=== PATIENT | male | born 1940 | race Caucasian/White ===

== ENCOUNTER → 2017-01-07 | Outpatient (CLI) | payer OTHER ==
[2016-10-15 10:27] VITALS: BP 117/68
[~2017-01-07] MED LIST: ASPI81TA2 PO; AZEL137S3 NS; BORAGE PO; CALC-38 PO; CLOP75TA PO; COQ10 PO; FISH PO; FLAX PO; FLUT12AE IH; Focus Factor PO; KRIL500C PO; LACT1CAP8 PO; LEVO50TA5 PO; MECL-51 PO; OMEP40CA5 PO; Occuvite PO; POTASSIUM GLUTAMATE PO; SIMV80TA3 PO; [UNRECOGNIZED DRUG - OTHER] PO
--- NOTE | 2017-01-07 17:47 | RAD ---
APPROVED REPORT Patient Location: OUT-PATIENT Laterality:Bilateral Indications AORTIC STENOSIS Doppler Spectral Velocity Analysis Right Left mCCA 58/ cm/smCCA 58/ cm/s ECA 63/ cm/sECA 119/ cm/s pICA 62/16 cm/spICA 59/20 cm/s Danelle 55/16 cm/smICA 87/27 cm/s dICA 69/19 cm/sdICA 103/29 cm/s ICA/CCA 1.19ICA/CCA 1.80 Findings Bilateral carotid arterial duplex reveals the following: On the right there is mild to moderate intimal hyperplasia and plaque at the carotid bifurcation. Spe ctral waveforms and color Doppler study does not reveal any evidence of high-grade stenosis with norm al velocity profiles. On the left there is again mild to moderate intimal hyperplasia and plaque at the carotid bifurcation . Spectral waveforms and color Doppler study does not reveal any evidence of high-grade stenosis with near normal velocity profiles. Overall, no significant disease is identified in the internal and external carotid vessels. The bilat eral vertebral velocities are antegrade and within acceptable ranges. Critical Notification Critical Value: No <Conclusion> No evidence of high-grade carotid arterial disease.
--- NOTE | 2017-01-07 17:50 | CARD ---
APPROVED REPORT EXAM: Two-dimensional and M-mode echocardiogram with Doppler and color Doppler. Other Information Quality : GoodHR: 68bpm Rhythm : NSR INDICATION Aortic Valve Disease Aortic stenosis 2D DIMENSIONS RVDd1.7 (2.9-3.5cm)Left Atrium(2D)4.8 (1.6-4.0cm) IVSd1.1 (0.7-1.1cm)Aortic Root(2D)2.7 (2.0-3.7cm) LVDd5.1 (3.9-5.9cm)LVOT Diameter2.3 (1.8-2.4cm) PWd1.1 (0.7-1.1cm)LVDs3.5 (2.5-4.0cm) FS (%) 32.1 %SV74.0 ml LVEF(%)60.0 (>50%) Aortic Valve AoV Peak Francisco Javier.358.4cm/sAoV VTI88.0cm AO Peak GR.51.4mmHgLVOT Peak Francisco Javier.100.2cm/s AO Mean GR.28mmHgAVA (VMAX)1.14cm2 AI P 1/2 [id number] Mitral Valve MV E Fwqbivqo08.4cm/sMV E Peak Gr.4mmHg MV DECEL [id number] A Mrmryrrq25.1cm/s MV E Mean Gr.2mmHgE/A Ratio1.3 MV A [id number] Pulmonary Valve PV Peak Rsamlsqx21.8cm/s Tricuspid Valve TR P. [id number]/sTR Peak Gr.28mmHg Pulmonary Vein S1 Soeqphlg93.7cm/sD2 Ajrjrwfo47.5cm/s PVa [id number] LEFT VENTRICLE The left ventricle is normal size. There is mild concentric left ventricular hypertrophy. The left ve ntricular systolic function is normal and the ejection fraction is within normal range. The Ejection Fraction is 55-60%. There is normal LV segmental wall motion. Transmitral Doppler flow pattern is Gra de II-pseudonormal filling dynamics. RIGHT VENTRICLE The right ventricle is normal size. There is normal right ventricular wall thickness. The right ventr icular systolic function is normal. ATRIA The left atrium is mildly dilated. The right atrium size is normal. The interatrial septum is intact with no evidence for an atrial septal defect or patent foramen ovale as noted on 2-D or Doppler imagi ng. AORTIC VALVE The aortic valve is severely sclerotic. The aortic valve is trileaflet. Doppler and Color Flow reveal ed moderate aortic regurgitation. There is moderate valvular aortic stenosis. Calculated aortic valve area is 1.1 cm2 with maximum pressure gradient of 51 mmHg and mean pressure gradient of 28 mmHg.The dimensionless index is .29 suggestive of moderate to severe . MITRAL VALVE The mitral valve leaflets are thickened. There is no evidence of mitral valve prolapse. There is no m itral valve stenosis. Doppler and Color Flow revealed moderate mitral regurgitation. TRICUSPID VALVE Doppler and Color Flow revealed trace tricuspid regurgitation. The pulmonary artery systolic pressure is estimated at 31 mmHg. There is mild pulmonary hypertension. PULMONIC VALVE Doppler and Color Flow revealed mild pulmonic valvular regurgitation. There is no pulmonic valvular s tenosis. GREAT VESSELS The aortic root is normal in size. The ascending aorta is normal in size. The pulmonary artery is nor mal. The IVC is normal in size and collapses >50% with inspiration. PERICARDIAL EFFUSION There is no evidence of significant pericardial effusion. Critical Notification Critical Value: No <Conclusion> The left ventricular systolic function is normal and the ejection fraction is within normal range. Th e Ejection Fraction is 55-60%. There is normal LV segmental wall motion. Transmitral Doppler flow pattern is Grade II-pseudonormal filling dynamics. Doppler and Color Flow revealed moderate aortic regurgitation. There is moderate valvular aortic stenosis. Calculated aortic valve area is 1.1 cm2 with maximum pressure gradient of 51 mmHg and mean pressure g radient of 28 mmHg.The dimensionless index is .29 suggestive of moderate to severe . Doppler and Color Flow revealed moderate mitral regurgitation.
== END | disposition home or self-care (01) ==
LOC: ECHO 10:55
PROVIDERS: ATTEND Internal Medicine Cardiovascular Disease
DX: I35.0 Nonrheumatic aortic (valve) stenosis (principal); I65.21 Occlusion and stenosis of right carotid artery
CPT/HCPCS: 93306; 93880